=== PATIENT | male | born 1945 | race Caucasian/White ===

== ENCOUNTER 2023-06-11 08:58 | Inpatient (IN) ==
--- NOTE | 2023-05-23 14:14 | PAT Medication Instructions ---
Medication Instructions Date of Service May 23, 2023 Home Medications acetaminophen 650 mg tablet,extended release 650 mg PO Q12H PRN Pain aspirin 81 mg capsule 81 mg PO QAM carbidopa 25 mg-levodopa 100 mg tablet 1 tab PO BID cetirizine 10 mg tablet 10 mg PO QAM clobetasol 0.05 % topical cream 1 applic topical BID PRN Skin Irritation cyanocobalamin (vitamin B-12) 1,000 mcg tablet,extended release (Vitamin B-12 ER) 1,000 mcg PO QAM gabapentin 400 mg capsule 400 mg PO BID magnesium oxide 800 mg PO BID metformin 500 mg tablet 1,000 mg PO BID omeprazole 20 mg tablet,delayed release 20 mg PO BID rosuvastatin 5 mg tablet 5 mg PO Q2D semaglutide 1 mg/dose (2 mg/1.5 mL) subcutaneous pen injector (Ozempic) 1 mg subcut WK sotalol 80 mg tablet 80 mg PO BID tamsulosin 0.4 mg capsule 0.4 mg PO BID Continue as directed rosuvastatin 5 mg tablet 5 mg PO Q2D STOP taking 7 days before surgery semaglutide 1 mg/dose (2 mg/1.5 mL) subcutaneous pen injector (Ozempic) 1 mg subcut WK STOP taking 24 hours before surgery clobetasol 0.05 % topical cream 1 applic topical BID PRN Skin Irritation DO NOT take the morning of surgery cetirizine 10 mg tablet 10 mg PO QAM cyanocobalamin (vitamin B-12) 1,000 mcg tablet,extended release (Vitamin B-12 ER) 1,000 mcg PO QAM magnesium oxide 800 mg PO BID metformin 500 mg tablet 1,000 mg PO BID Take morning of surgery With a small sip of water, OTHERWISE NOTHING TO EAT OR DRINK AFTER MIDNIGHT: acetaminophen 650 mg tablet,extended release 650 mg PO Q12H PRN Pain (if needed) aspirin 81 mg capsule 81 mg PO QAM (unless surgeon directed otherwise) carbidopa 25 mg-levodopa 100 mg tablet 1 tab PO BID gabapentin 400 mg capsule 400 mg PO BID omeprazole 20 mg tablet,delayed release 20 mg PO BID sotalol 80 mg tablet 80 mg PO BID tamsulosin 0.4 mg capsule 0.4 mg PO BID Take evening before surgery acetaminophen 650 mg tablet,extended release 650 mg PO Q12H PRN Pain (if needed) carbidopa 25 mg-levodopa 100 mg tablet 1 tab PO BID gabapentin 400 mg capsule 400 mg PO BID magnesium oxide 800 mg PO BID metformin 500 mg tablet 1,000 mg PO BID omeprazole 20 mg tablet,delayed release 20 mg PO BID sotalol 80 mg tablet 80 mg PO BID tamsulosin 0.4 mg capsule 0.4 mg PO BID Other Notes If you have any questions please call us at [phone] or [phone] or [phone] or [phone]
--- NOTE | 2023-05-28 12:22 | Anesthesiology Consultation ---
Date of Service May 28, 2023 Assessment & Plan (1) Encounter for pre-operative examination: - check BSG am DOS. - severe PONV: to anesthesiologist and patient, discussion am DOS. - upcoming PCP pre-operative evaluation 06/06/23. - upcoming [facility] pre-operative evaluation 05/31/23. - Ozempic instructions: Patient takes on (Sunday). Patient and his were informed at PAT visit to stop 7 days prior to surgery- voiced understanding. Instructed last dose will be: (06/02/23). Patient advised to check with prescriber to see if alternative diabetic management changes recommended while holding Ozempic and instructions on resuming medication. They were advised if alternative medication is advised to contact [facility] to update chart and discuss if any further preop medication instructions needed. Chart Review Chart Review: Pending: Refer to Additional Notes / Consult section and Patient seen in Pre Admission Testing Teaching & Discussion Pre-Anesthesia Teaching/Discussion Notes: Instructed NPO after midnight before surgery, except medications with 15 cc of water. Medication instructions provided according to the PAT guidelines. History Surgery Operation Date: 06/11/23 07:45 Proposed Procedures p L4-L5 Decompression and Fusion, Spinal Cord Monitoring - [facility], Height/Weight Height: 5 ft 10 in Weight: 88.7 kg Allergies Allergy/AdvReac Type Severity Reaction Status Date / Time adhesive tape Allergy Severe skin Verified 05/18/23 14:59 irritation Iodinated Contrast Media Allergy Intermediate Hives Verified 05/18/23 14:59 meperidine [From Demerol] AdvReac Severe nervousness Verified 05/18/23 14:59 and tray oxycodone AdvReac Severe delirium Verified 05/18/23 14:59 phenylephrine AdvReac Severe bladder Verified 05/28/23 15:26 obstruction Sulfa (Sulfonamide AdvReac Severe urinary Verified 05/28/23 15:26 Antibiotics) retention trimethoprim AdvReac Severe urinary Verified 05/28/23 15:26 retention acetaminophen AdvReac Intermediate nausea, Verified 05/28/23 15:26 [From Panlor vomiting (hydrocodone-acetamin)] aspirin AdvReac Intermediate full dose Verified 05/18/23 14:59 aspirin -> GI upset fluvastatin AdvReac Intermediate myalgias Verified 05/28/23 15:26 hydrocodone AdvReac Intermediate nausea, Verified 05/28/23 15:26 [From Panlor vomiting (hydrocodone-acetamin)] pravastatin [From Pravachol] AdvReac Intermediate myalgias Verified 05/28/23 15:26 Medications Home Medications Medication Instructions Recorded Confirmed Last Taken acetaminophen 650 mg 650 mg PO Q12H PRN Pain 05/18/23 05/18/23 Unknown tablet,extended release aspirin 81 mg capsule 81 mg PO QAM 05/18/23 05/18/23 Unknown carbidopa 25 mg-levodopa 100 mg 1 tab PO BID 05/18/23 05/18/23 Unknown tablet cetirizine 10 mg tablet 10 mg PO QAM 05/18/23 05/18/23 Unknown clobetasol 0.05 % topical cream 1 applic topical BID PRN Skin 05/18/23 05/18/23 Unknown Irritation cyanocobalamin (vitamin B-12) 1,000 mcg PO QAM 05/18/23 05/18/23 Unknown 1,000 mcg tablet,extended release (Vitamin B-12 ER) gabapentin 400 mg capsule 400 mg PO BID 05/18/23 05/18/23 Unknown magnesium oxide 800 mg PO BID 05/18/23 05/18/23 Unknown metformin 500 mg tablet 1,000 mg PO BID 05/18/23 05/18/23 Unknown omeprazole 20 mg tablet,delayed 20 mg PO BID 05/18/23 05/18/23 Unknown release rosuvastatin 5 mg tablet 5 mg PO Q2D 05/18/23 05/18/23 Unknown semaglutide 1 mg/dose (2 mg/1.5 1 mg subcut WK 05/18/23 05/18/23 05/12/23 mL) subcutaneous pen injector (Ozempic) sotalol 80 mg tablet 80 mg PO BID 05/18/23 05/18/23 Unknown tamsulosin 0.4 mg capsule 0.4 mg PO BID 05/18/23 05/18/23 Unknown Past Medical History Medical History (Updated 05/28/23 @ 15:36 by Radha Lomas, HEMANT) Aortic stenosis Mild aortic valve stenosis (YADIRA I, D 1.2 cm2, V, D 1.1 cm2) mean peak gradient 8.5 mmHg, max peak gradient 16.3 mmHg. Asthma stable per pt and Chronic back pain Degenerative disc disease Diabetes mellitus, type 2 NIDDM GERD (gastroesophageal reflux disease) controlled, stable per pt History of skin cancer facial, s/p excision Hx of bronchitis Mid-April 2023. treated with OTC and doing well at this time. no s/s currently. Hx of colonic polyp Hyperlipidemia Nausea and vomiting after administration of anesthetic agent severe Parkinson disease follows with Dr Snow ([facility]/[place] [facility]) Pneumonia March 2023. treated with abx and [facility] for [facility]hab. doing well at this time. Sleep apnea hx -- not currently on treatment Tachycardia reason for sotalol Patient denies h/o stroke, seizures, heart attack, heart failure, HTN, PEs/DVTs or blood transfusions. Exercise / Class Metabolic Activity III < 4 Walking/Shop/Light housework (ambulates with cane, denies chest discomfort or shortness of breath with usual activities) Past Family History Family History (Updated 05/18/23 @ 15:39 by Alisa Chou RN) Other No family history of adverse response to anesthesia Past Surgical History Surgical History (Updated 05/18/23 @ 15:37 by Alisa Chou RN) H/O foot surgery left 2nd toe History of adenoidectomy History of appendectomy History of arthroplasty of right knee History of cardiac cath no stent (~) History of cataract surgery bilateral History of cholecystectomy History of colonoscopy History of esophagogastroduodenoscopy (EGD) History of open reduction and internal fixation (ORIF) procedure right leg hardware (right knee) s/p TKA History of open reduction and internal fixation (ORIF) procedure right thumb with hardware History of tonsillectomy Hx of local excision of skin lesion S/P cervical spinal fusion 1 level fusion. patient unsure which level. Full ROM Status post revision of total replacement of right knee Past Anesthesia History No Hx of Anesthesia Complications and No Family Hx of Anesthesia Complications History of PONV No Hx of Motion Sickness and History of PONV (severe, unknown if has had scop patch in past) Social History Smoking Status: Never smoker Do You Dip or Chew Tobacco: No Hx Alcohol Use: No Hx Substance Use: No Review of Systems Patient denies chest pain, shortness of breath, dyspnea on exertion, fever, chills, cough, wheezing, or palpitations. Physical Exam Vital Signs Vitals BP 115/77 P 70 TEMP 97.5 SP02 95% on RA RESP 17 Physical Patient resting comfortably in chair in no acute distress, alert and oriented, responding appropriately throughout visit Full cervical extension range of motion without pain TMD 3.5 finger breadths Mallampati Score 2 Dentition: several missing teeth, denies chipped or loose teeth, caps/crowns, implants or bridges Lungs: normal respiratory effort. Good air movement, clear throughout to auscultation, no adventitious breath sounds Cardiac: regular rate and rhythm, no murmurs noted Carotid arteries: negative bruit bilat Lab Results Anesthesia Preop Results Results Anesthesia Widget: WBC 9.40 K/ul (4.8-10.8) 05/28/23 Hgb 14.4 g/dl (14.0-18.0) 05/28/23 Hct 40.1 % (42.0-52.0) L 05/28/23 Plt 170 K/uL (130-400) 05/28/23 Na 139 mmol/L (136-145) 05/28/23 K 4.2 mmol/L (3.5-5.1) 05/28/23 Cl 102 mmol/L (98-107) 05/28/23 CO2 30 mmol/L (21-32) 05/28/23 BUN 23 mg/dl (6-23) 05/28/23 Creat 0.90 mg/dl (0.6-1.4) 05/28/23 Glucose Level 148 mg/dl (70-99(Fasting)) H 05/28/23 PT 11.8 Seconds (9.0-12.0) 05/28/23 PTT 27.2 Seconds (21.0-31.0) 05/28/23 INR 1.1 (0.9-1.1) 05/28/23 Urine Color Yellow 05/28/23 Urine Appearance Clear (Clear) 05/28/23 Urine pH 7.0 (4.5-7.5) 05/28/23 Urine Specific Holley 1.020 (1.000-1.030) 05/28/23 Urine Protein 1+ (Negative) H 05/28/23 Urine Glucose (UA) Negative (Negative) 05/28/23 Urine Ketones Negative (Negative) 05/28/23 Urine Blood Negative (Negative) 05/28/23 Urine Nitrite Negative (Negative) 05/28/23 Urine Bilirubin Negative (Negative) 05/28/23 Urine Urobilinogen Negative (Negative) 05/28/23 Urine Leukocyte Esterase Negative (Negative) 05/28/23 Urine WBC (Auto) 1-5 /hpf (0-5) 05/28/23 Urine RBC (Auto) 0-4 /hpf (0-4) 05/28/23 Urine Hyaline Casts (Auto) 0 /lpf (0-5) 05/28/23 Urine Epithelial Cells (Auto) 0-5 /lpf (0-5) 05/28/23 Urine Bacteria (Auto) Negative (Negative) 05/28/23 Blood Type A Positive 05/28/23 Antibody Screen NEGATIVE 05/28/23 Testing Electrocardiogram Date: 05/28/23 NSR, rate 65 bpm Right axis deviation Abnormal QRS T angle, consider primary T wave abnormality Chest X-Ray Date: 05/28/23 Interstitial thickening without evidence of acute abnormality. Cardiomegaly. Echocardiogram Date: 11/27/21 EF 60-64% Severe cLVH No LV segmental wall motion abnormalities Mild aortic valve stenosis (YADIRA I, D 1.2 cm2, V, D 1.1 cm2) mean peak gradient 8.5 mmHg, max peak gradient 16.3 mmHg. Mild mitral regurgitation Mildly enlarged proximal ascending thoracic aorta Cardiac Catheterization Date: 11/28/21 Left main: no evidence of disease LAD: moderately diseased, 40% lesion in proximal LAD, 60% lesion mid LAD, 60% lesion 1st diagonal Cx: mildly diseased RCA: moderately diseased, 60% lesion right PDA Hemodynamically insignificant coronary disease Medical management Cervical Spine Date: 07/03/22 CT 1. No significant interval changes. No evidence of traumatic injury or other acute abnormality in the head and cervical spine. 2. Stable chronic, age-related, and incidental findings as described above. Other Testing Chest CT 07/03/22 1. Nondisplaced possible fracture of the right anterior 6th rib. Correlate for focal tenderness. 2. Bilateral chronic rib deformities. 3. Slightly increased findings of fibrotic lung disease.
[~2023-06-11 08:58] MED LIST: CeleBREX 200 MG CAP PO SCH; DEXAMETHASONE SOD INJ 4 MG/ML VIAL ONE; GABAPENTIN 300 MG CAP PO SCH; LIDOCAINE 2% 2 ML VIAL/AMP(20MG/ML) INFIL ONE; LR 15ML/HR IV SCH; LR 60ML/HR IV SCH; MIDAZOLAM HCL 1 MG/ML 2ML VIAL ONE; ONDANSETRON INJ 2 MG/ML 2 ML VIAL ONE; PROPOFOL IV EMULSION 10 MG/ML 20 ML VIAL IV ONE; ROCURONIUM BROMIDE 10 MG/ML 5 ML VIAL IV ONE; SUGAMMADEX SODIUM 200 MG/2 ML VIAL IV ONE; ceFAZolin 2000MG 2,000 MG/15 ML SYR IV SCH; fentaNYL citrate PF 100 MCG/2 ML VIAL ONE
[2023-06-11] MEDS ORDERED: PROPOFOL IV EMULSION 10 MG/ML 20 ML VIAL IV ONE (10:36)
[2023-06-11] MEDS ORDERED: ePHEDrine sulfate 50 MG/ML AMP IV PRN (10:41)
[2023-06-11] MEDS ORDERED: ONDANSETRON INJ 2 MG/ML 2 ML VIAL IV PRN ×2 (10:41→15:30)
[2023-06-11] MEDS ORDERED: ATROPINE SULFATE 0.1 MG/ML 10ML SYR IV PRN (10:41)
--- NOTE | 2023-06-11 11:01 | History & Physical Bridge Note ---
Date of Service June 11, 2023 History & Physical Bridge Note I have examined the patient, reviewed the History & Physical and in the interval since the performance of the History & Physical I have noted the following changes of clinical significance: no changes noted
--- NOTE | 2023-06-11 11:02 | History & Physical Report ---
Date of Service June 11, 2023 Assessment & Plan (1) Neurogenic claudication due to lumbar spinal stenosis: Plan: L4-L5 decompression and fusion History of Present Illness Chief Complaint: Back and leg pain Primary Care Provider: MARCOS Meadows This is a 77-year-old male that presents with chronic persistent back and leg pain after failing course of nonoperative care is here for surgical intervention. Allergies Allergy/AdvReac Type Severity Reaction Status Date / Time adhesive tape Allergy Severe skin Verified 06/11/23 09:32 irritation Iodinated Contrast Media Allergy Intermediate Hives Verified 06/11/23 09:32 meperidine [From Demerol] AdvReac Severe nervousness Verified 06/11/23 09:32 and shakey oxycodone AdvReac Severe delirium Verified 06/11/23 09:32 phenylephrine AdvReac Severe bladder Verified 06/11/23 09:32 obstruction Sulfa (Sulfonamide AdvReac Severe urinary Verified 06/11/23 09:32 Antibiotics) retention trimethoprim AdvReac Severe urinary Verified 06/11/23 09:32 retention acetaminophen AdvReac Intermediate nausea, Verified 06/11/23 09:32 [From Panlor vomiting (hydrocodone-acetamin)] aspirin AdvReac Intermediate full dose Verified 06/11/23 09:32 aspirin -> GI upset fluvastatin AdvReac Intermediate myalgias Verified 06/11/23 09:32 hydrocodone AdvReac Intermediate nausea, Verified 06/11/23 09:32 [From Panlor vomiting (hydrocodone-acetamin)] pravastatin [From Pravachol] AdvReac Intermediate myalgias Verified 06/11/23 09:32 Home Medications Medication Instructions Recorded Confirmed Type acetaminophen 650 mg 650 mg PO Q12H PRN Pain 05/18/23 06/11/23 History tablet,extended release aspirin 81 mg capsule 81 mg PO QAM 05/18/23 06/11/23 History carbidopa 25 mg-levodopa 100 mg 1 tab PO BID 05/18/23 06/11/23 History tablet cetirizine 10 mg tablet 10 mg PO QAM 05/18/23 06/11/23 History clobetasol 0.05 % topical cream 1 applic topical BID PRN Skin 05/18/23 06/11/23 History Irritation cyanocobalamin (vitamin B-12) 1,000 mcg PO QAM 05/18/23 06/11/23 History 1,000 mcg tablet,extended release (Vitamin B-12 ER) gabapentin 400 mg capsule 400 mg PO BID 05/18/23 06/11/23 History magnesium oxide See Rx Instructions .Route .COMPLEX 05/18/23 06/11/23 History metformin 500 mg tablet 1,000 mg PO BID 05/18/23 06/11/23 History rosuvastatin 5 mg tablet 5 mg PO Q2D 05/18/23 06/11/23 History semaglutide 1 mg/dose (2 mg/1.5 1 mg subcut WK 05/18/23 06/11/23 History mL) subcutaneous pen injector (Ozempic) sotalol 80 mg tablet 80 mg PO BID 05/18/23 06/11/23 History tamsulosin 0.4 mg capsule 0.4 mg PO BID 05/18/23 06/11/23 History famotidine 20 mg tablet 20 mg PO QAM 06/06/23 06/11/23 History Past Med/Surg History Medical History (Updated 06/11/23 @ 11:02 by [facility] DO) Aortic stenosis Mild aortic valve stenosis (YADIRA I, D 1.2 cm2, V, D 1.1 cm2) mean peak gradient 8.5 mmHg, max peak gradient 16.3 mmHg. Asthma stable per pt and Chronic back pain Degenerative disc disease Diabetes mellitus, type 2 NIDDM GERD (gastroesophageal reflux disease) controlled, stable per pt History of skin cancer facial, s/p excision Hx of bronchitis Mid-April 2023. treated with OTC and doing well at this time. no s/s currently. Hx of colonic polyp Hyperlipidemia Nausea and vomiting after administration of anesthetic agent severe Parkinson disease follows with Dr Snow ([facility] [facility]) Pneumonia March 2023. treated with abx and sent [place] [facility] 1 [facility] for rehab. doing well at this time. Sleep apnea hx -- not currently on treatment Tachycardia reason for sotalol Surgical History H/O foot surgery left 2nd toe History of adenoidectomy History of appendectomy History of arthroplasty of right knee History of cardiac cath no stent (~) History of cataract surgery bilateral History of cholecystectomy History of colonoscopy History of esophagogastroduodenoscopy (EGD) History of open reduction and internal fixation (ORIF) procedure right leg hardware (right knee) s/p TKA History of open reduction and internal fixation (ORIF) procedure right thumb with hardware History of tonsillectomy Hx of local excision of skin lesion S/P cervical spinal fusion 1 level fusion. patient unsure which level. Full ROM Status post revision of total replacement of right knee Family History (Updated 05/18/23 @ 15:39 by Alisa Chou RN) Other No family history of adverse response to anesthesia Social History Smoking Status: Never smoker Second Hand Exposure: No; Do You Dip or Chew Tobacco: No; Tobacco Cessation Education Requested by Patient: No Hx Alcohol Use: No Hx Substance Use: No Preferred Language: Czech Communication Ability: Effective Community [employer] Officer Required: No Beliefs That Will Affect Care: None Current Living Situation: Spouse Other Information That Helps Us Care for You: No Feels Safe at Home: Yes Safety Concerns: Feels Safe At This Time Assistive Devices: Cane, Glasses, Hearing Aid - Bilateral and Walker Physical Exam Physical Exam: Patient is alert and oriented Heart regular rhythm Lungs clear Results & Data Results & Data Vital Signs (Past 12 Hours) Vital Signs Temp Pulse Resp BP Pulse Ox O2 Del Method 06/11/23 10:05 36.4 C L 68 20 117/75 97 Room Air
[2023-06-11] MEDS ORDERED: ceFAZolin 330 MG/ML 1 GM VIAL ONE (11:18)
[2023-06-11] MEDS ORDERED: BUPIVACAINE/EPINEPHRINE 0.25% 1:200,000 30 ML VIAL ONE (11:18)
[2023-06-11] MEDS ORDERED: ePHEDrine sulfate 50 MG/5 ML SYR ONE (11:45)
[2023-06-11] MEDS ORDERED: FLOSEAL HEMOSTATIC MATRIX 10ML TOP ONE (12:12)
--- NOTE | 2023-06-11 12:56 | Operative Report ---
Post Operative Report Pre & Post Diagnosis Operation Date: 06/11/23 10:55 Pre-Op Diagnosis: Neurogenic claudication due to lumbar spinal stenosis Post-Op Diagnosis: Neurogenic claudication due to lumbar spinal stenosis I identified the patient and participated in the time-out.: Yes Procedure Operation Date: 06/11/23 10:55 Actual Procedures #1 lumbar decompression bilateral medial facetectomies and foraminotomies L3-L4 L4-L5. #2 posterior spinal fusion L4-5. #3 placed posterior instrumentation L4-L5. #4 interbody fusion L4-5. #5 placement Spira 13 x 26 mm at L4-5. #6 placement locally harvested morselized autograft in the posterior gutters. #7 placement of I factor in the interbody space and infuse collagen sponge in the posterior gutters. Surgeon [facility], Auto Service Representative Alycia Kruse Estimated Blood Loss 50 Findings Consistent with Post-Op Diagnosis Specimens None Indications This is a 77-year-old male who presents above-mentioned diagnosis after failing course of nonoperative care is here for surgical invention. Description of Procedure Patient met with identified informed consent obtained. Patient was then taken to the operative suite underwent patient placed in a prone position on the Siloam table top Giuseppe frame. All bony promises well-padded eyes inspected to ensure no external pressure placed upon the. This point lumbar spine was prepped and draped in a sterile fashion. Sharp dissection with assistance of Bovie cautery from back to and exposing the lamina transverse processes of L4-L5 bilaterally. Separately retractors placed. Informed complete laminectomy L4 partial laminectomy of L3 including bilateral medial facetectomies and for aminotomies addressing severe spinal stenosis. Pedicle screws then placed in L4-L5 bilaterally with assistance of fluoroscopy and the proper sized holly placed. By way of a transfemoral approach and right a complete discectomy of L4-L5 was performed endplates curetted to subcortically and bone and a 13 x 26 mm Spira cage with I factor tapped position. The rods were then locked in final position bilaterally. The transverse processes of L4-L5 were then burred to subcortical bleeding bone. Infuse collagen sponge. Combined with bone graft was placed in the posterior gutters. 15 round WENDIE drain inserted. The incision was then closed with 1 Vicryl to fascia 2-0 Vicryl subcutaneously and 4 Monocryl for final skin closure. Steri-Strips sterile dressings placed. Patient waken taken to PACU in stable condition. Please note spinal cord body was utilized at the procedure no changes noted. Lastly Alycia Kruse was present at the entire surgery and while the patient positioning complex course of the surgery and final skin closure. I attest to the content of the Intraoperative Record and any orders documented therein. Any exceptions are noted below.
[2023-06-11] MEDS: fentaNYL citrate PF 100 MCG/2 ML VIAL IV PRN ×4 (13:27→14:22)
--- NOTE | 2023-06-11 14:36 | Anesthesiology Progress Note ---
Date of Service June 11, 2023 Anesthesia Post Procedure Vital Signs Vital Signs: Temp Pulse Pulse Resp BP Pulse Ox O2 Del Method 06/11/23 14:30 36.8 C 57 L 13 149/80 H 95 Nasal Cannula 06/11/23 14:15 36.8 C 56 L 10 L 141/81 H 94 Oxymask 06/11/23 14:05 36.8 C 55 L 10 L 142/85 H 96 Oxymask 06/11/23 14:25 36.8 C 56 L 10 L 141/81 H 94 Oxymask 06/11/23 13:55 53 L 10 L 146/79 H 96 Oxymask 06/11/23 13:45 54 L 12 149/79 H 97 Oxymask 06/11/23 13:35 53 L 11 L 138/79 97 Oxymask 06/11/23 13:29 36.4 C L 59 L 12 121/72 97 Oxymask 06/11/23 10:05 36.4 C L 68 20 117/75 97 Room Air O2 Flow Rate 06/11/23 14:30 2 06/11/23 14:15 2 06/11/23 14:05 2 06/11/23 14:25 2 06/11/23 13:55 2 06/11/23 13:45 3 06/11/23 13:35 3 06/11/23 13:29 5 06/11/23 10:05 Pain Intensity Back: Pain Intensity: 3 Transfer of Care Handoff Completed per policy Notes Mental Status: alert / awake / arousable and participated in evaluation Patient Amnestic to Procedure: Yes Nausea / Vomiting: adequately controlled Pain: adequately controlled Airway Patency, RR, SpO2: stable & adequate BP & HR: stable & adequate Hydration State: stable & adequate Anesthetic Complications: no major complications apparent and Pt Satisfied with anesthetic care
--- NOTE | 2023-06-11 14:38 | Fluoroscopy Report ---
INTRAOPERATIVE RADIOGRAPHS CLINICAL HISTORY: Lumbar spinal fusion surgery. Fluoro time: 16 seconds Ka,r: 8.54 mGy FINDINGS: 2 spot fluoroscopic views of the lumbar spine are presented. There has been discectomy at L 4-L5 with laminectomy and posterior fusion at this level. Interpedicular screws are in place. The ort hopedic hardware appears intact. IMPRESSION: Intraoperative images from lumbar spinal fusion surgery as above. Electronically signed by: Kentrell Wall M.D. 06/11/2023 2:37 PM
[2023-06-11] MEDS ORDERED: bisacodyL 10 MG SUPP PR PRN (15:30)
[2023-06-11] MEDS ORDERED: diphenhydrAMINE Capsule 25 MG CAP PO PRN (15:30)
[2023-06-11] MEDS ORDERED: hydrOXYzine HCl 25 MG TAB PO PRN (15:30)
[2023-06-11] MEDS ORDERED: ALUMINUM/MAGNESIUM SUSP 30 ML UDC PO PRN (15:30)
[2023-06-11] MEDS ORDERED: DO NOT ADMINISTER FLU VACCINE PRN (15:30)
[2023-06-11] MEDS ORDERED: METOCLOPRAMIDE HCL INJ 5 MG/ML 2 ML VIAL IV PRN (15:30)
[2023-06-11] MEDS ORDERED: NALOXONE HCL 0.4 MG/1 ML VIAL/CARP IV PRN (15:30)
[2023-06-11] MEDS ORDERED: LORazepam 0.5 MG TAB PO PRN (15:30)
[2023-06-11] MEDS ORDERED: traMADol HCL 50 MG TABLET PO PRN (15:30)
[2023-06-11] MEDS ORDERED: HYDROmorphone INJ 0.5 MG/0.5 ML SYR IV PRN (15:30)
[2023-06-11] MEDS ORDERED: MAGNESIUM HYDROXIDE SUSP 30 ML UDC PO PRN (15:30)
[2023-06-11] MEDS ORDERED: PROMETHAZINE HCL 12.5 MG in SODIUM CHLORIDE 0.9% 50 ML IV PRN (15:30)
[2023-06-11] MEDS ORDERED: FAMOTIDINE 20 MG TAB PO PRN (15:30)
[2023-06-11] MEDS ORDERED: CLOBETASOL PROPIONATE 0.05% CREAM 15 GM TUBE TOP PRN (15:30)
[2023-06-11] MEDS ORDERED: PHARMACY GLYCEMIC MGMT CONSULT PRN (15:30)
[2023-06-11] MEDS ORDERED: HYDROmorphone INJ 1 MG/ML SYRINGE IV PRN (15:30)
[2023-06-11] MEDS ORDERED: ACETAMINOPHEN 1,000 MG/100 ML VIAL IV PRN (15:30)
[2023-06-11] MEDS ORDERED: SOD PHOSPHATE/SOD BIPHOSPHATE ENEMA 132 ML BTL PR PRN (15:30)
[2023-06-11] MEDS ORDERED: DO NOT ADMINISTER PNEUMOCOCCAL VACCINE PRN (15:30)
[2023-06-11] MEDS ORDERED: ONDANSETRON 4 MG OD TAB PO PRN (15:30)
[2023-06-11] MEDS ORDERED: LORazepam 2 MG/1 ML VIAL IV PRN (15:30)
[2023-06-11] MEDS ORDERED: GLUCOSE 40% GEL 15 GM TUBE PO PRN (16:00)
[2023-06-11] MEDS ORDERED: CARBOHYDRATES FOR HYPOGLYCEMIA PO PRN (16:00)
[2023-06-11] MEDS ORDERED: GLUCOSE 10 TAB/TUBE PO PRN (16:00)
[2023-06-11] MEDS ORDERED: DEXTROSE 50% 50 ML SYRINGE IV PRN (16:00)
[2023-06-11] MEDS ORDERED: LANTUS PER UNIT CHARGE SC ONE (16:00)
[2023-06-11] MEDS ORDERED: GLUCAGON FOR INJ 1 MG VIAL IM PRN (16:00)
[2023-06-11] MEDS: SODIUM CHLORIDE 0.9% 1,000 ML IV SCH (16:08)
--- NOTE | 2023-06-11 16:42 | Hospitalist Consultation ---
Date of Consultation June 11, 2023 Assessment & Plan (1) Neurogenic claudication due to lumbar spinal stenosis: 77 y/o male with a DM2, HTN, hx vtach on Sotalol, HTN, Parkinson disease, GERD who underwent L4-L5 decompression fusion today by Dr. House. He is currently having significant post-operative nausea and vomiting, which he has had previously. He also has a history of hypomagnesemia, which they have been working to correct outpatient. His PPI was recently discontinued as they thought this may be contributing. No labs done yet today. POD #0 L4-L5 decompression/fusion - Pain control, activity, DVT prophylaxis per primary team - Check stat labs - CBC, BMP, Mg, Phos and replete if needed. Repeat labs in AM. - EKG now to evaluate QTc - Continue anti-emetics. Consider changing to liquid diet until N/V improved - Hold Lantus for tonight due to N/V. Re-evaluate tomorrow. Continue sliding scale coverage for now. - Encourage incentive spirometry (2) Post-operative nausea and vomiting: (3) Diabetes mellitus, type 2: (4) History of ventricular tachycardia: (5) Parkinson disease: (6) GERD (gastroesophageal reflux disease): Plan Continue other home medications as appropriate. updated at the bedside. Pt seen and reviewed with collaborating physician, Dr. Lindsey. Plan of care as outlined above. Thank you for this consultation. We will continue to follow the patient with you. A member of the [facility]ist team is available 05/03 via [employer]. Please don't hesitate to reach out with questions. Mark Flood PA-C Supervising Physician Co-Signing Physician Notes Patient seen and examined Reports nausea and vomiting. Seems he has post op N/V after anesthesia in the past Has hearing deficits and hearing aide not currently available Pain control Activity per Primary surgical team Check BMP, mag, phos, CBC Antiemetics Will hold off lantus for today due to persistent vomiting. Continue insulin sliding scale for now History of Present Illness Reason for Consultation: Post-operative medical management Requesting Physician: Dr. Remington House Attending Physician: Remington House, DO History of Present Illness This is a 77 y/o male with a history of DM2, prior VT (now on Sotalol), diabetic kidney disease, CAD, asthma, PTSD, HTN, BPH, dyslipidemia, and Parkinson disease who underwent L4-L5 decompression/fusion today by Dr. House and for whom we have been consulted to assist with post-operative medical management. Currently pt is feeling drowsy from the anesthesia and having significant nausea so his at the bedside assisted with the history. He has had three episodes of emesis already. Nausea is slightly better at present than when he was in PACU. Last dose of Zofran about two hours ago. Pt's reports that he has had similar symptoms in the past, which have been attributed to the pain medication. He has associated lightheadedness but denies chest pain, palpitations, shortne ss of breath, LARIOS. His outpatient cardiology notes were reviewed as well. Pt has a history of vtach for which he is on Sotalol. More recently, he has been having issues with hypomagnesemia, even with replacement. His PPI was stopped about a week ago and magnesium dosing was changed to lunch and evening, taking famotidine now in the AM. Labs have not been rechecked since this change. Pt is hard of hearing as well but left his hearing aids at home to make sure they didn't get lost. Allergies Allergy/AdvReac Type Severity Reaction Status Date / Time adhesive tape Allergy Severe skin Verified 06/11/23 09:32 irritation Iodinated Contrast Media Allergy Intermediate Hives Verified 06/11/23 09:32 meperidine [From Demerol] AdvReac Severe nervousness Verified 06/11/23 09:32 and shakey oxycodone AdvReac Severe delirium Verified 06/11/23 09:32 phenylephrine AdvReac Severe bladder Verified 06/11/23 09:32 obstruction Sulfa (Sulfonamide AdvReac Severe urinary Verified 06/11/23 09:32 Antibiotics) retention trimethoprim AdvReac Severe urinary Verified 06/11/23 09:32 retention acetaminophen AdvReac Intermediate nausea, Verified 06/11/23 09:32 [From Panlor vomiting (hydrocodone-acetamin)] aspirin AdvReac Intermediate full dose Verified 06/11/23 09:32 aspirin -> GI upset fluvastatin AdvReac Intermediate myalgias Verified 06/11/23 09:32 hydrocodone AdvReac Intermediate nausea, Verified 06/11/23 09:32 [From Panlor vomiting (hydrocodone-acetamin)] pravastatin [From Pravachol] AdvReac Intermediate myalgias Verified 06/11/23 09:32 Home Medications Medication Instructions Recorded Confirmed Type acetaminophen 650 mg 650 mg PO Q12H PRN Pain 05/18/23 06/11/23 History tablet,extended release aspirin 81 mg capsule 81 mg PO QAM 05/18/23 06/11/23 History carbidopa 25 mg-levodopa 100 mg 1 tab PO BID 05/18/23 06/11/23 History tablet cetirizine 10 mg tablet 10 mg PO QAM 05/18/23 06/11/23 History clobetasol 0.05 % topical cream 1 applic topical BID PRN Skin 05/18/23 06/11/23 History Irritation cyanocobalamin (vitamin B-12) 1,000 mcg PO QAM 05/18/23 06/11/23 History 1,000 mcg tablet,extended release (Vitamin B-12 ER) gabapentin 400 mg capsule 400 mg PO BID 05/18/23 06/11/23 History magnesium oxide See Rx Instructions .Route .COMPLEX 05/18/23 06/11/23 History metformin 500 mg tablet 1,000 mg PO BID 05/18/23 06/11/23 History rosuvastatin 5 mg tablet 5 mg PO Q2D 05/18/23 06/11/23 History semaglutide 1 mg/dose (2 mg/1.5 1 mg subcut WK 05/18/23 06/11/23 History mL) subcutaneous pen injector (Ozempic) sotalol 80 mg tablet 80 mg PO BID 05/18/23 06/11/23 History tamsulosin 0.4 mg capsule 0.4 mg PO BID 05/18/23 06/11/23 History famotidine 20 mg tablet 20 mg PO QAM 06/06/23 06/11/23 History Patient History Medical History (Updated 06/11/23 @ 17:33 by Adriana Flood PA-C) Aortic stenosis Mild aortic valve stenosis (YADIRA I, D 1.2 cm2, V, D 1.1 cm2) mean peak gradient 8.5 mmHg, max peak gradient 16.3 mmHg. Asthma stable per pt and Chronic back pain Degenerative disc disease Diabetes mellitus, type 2 NIDDM GERD (gastroesophageal reflux disease) controlled, stable per pt History of skin cancer facial, s/p excision History of ventricular tachycardia on sotalol Hx of bronchitis Mid-April 2023. treated with OTC and doing well at this time. no s/s currently. Hx of colonic polyp Hyperlipidemia Nausea and vomiting after administration of anesthetic agent severe Parkinson disease follows with Dr Snow ([facility], [place] [facility]) Pneumonia March 2023. treated with abx and sent to a detention for 1 week for rehab. doing well at this time. Sleep apnea hx -- not currently on treatment Surgical History H/O foot surgery left 2nd toe History of adenoidectomy History of appendectomy History of arthroplasty of right knee History of cardiac cath no stent (~) History of cataract surgery bilateral History of cholecystectomy History of colonoscopy History of esophagogastroduodenoscopy (EGD) History of open reduction and internal fixation (ORIF) procedure right leg hardware (right knee) s/p TKA History of open reduction and internal fixation (ORIF) procedure right thumb with hardware History of tonsillectomy Hx of local excision of skin lesion S/P cervical spinal fusion 1 level fusion. patient unsure which level. Full ROM Status post revision of total replacement of right knee Family History (Updated 05/18/23 @ 15:39 by Alisa Chou RN) Other No family history of adverse response to anesthesia Social History Smoking Status: Never smoker Second Hand Exposure: No; Do You Dip or Chew Tobacco: No; Tobacco Cessation Education Requested by Patient: No Hx Alcohol Use: No Hx Substance Use: No Preferred Language: Kittitian Communication Ability: Effective [place] [employer] Required: No Beliefs That Will Affect Care: None Current Living Situation: Spouse Other Information That Helps Us Care for You: No Feels Safe at Home: Yes Safety Concerns: Feels Safe At This Time Assistive Devices: Cane, Glasses, Hearing Aid - Bilateral and Walker Review of Systems Review of Systems: All systems reviewed & are unremarkable except as noted in HPI & below Limited due to pt condition (drowsy, significant nausea) Physical Exam Constitutional: drowsy but arousable, appears uncomfortable Neck: trachea midline Respiratory: no respiratory distress and no labored breathing Auscultation: + diminished lung sounds Cardiovascular: Rate/Rhythm: regular rate and regular rhythm Gastrointestinal (Abdomen): soft, hypoactive BS, non-tender, non-distended Musculoskeletal: Head/Neck/Chest: normocephalic, head atraumatic and neck supple Skin: Surgical drain in place with sanguinous drainage Neurologic: moving toes bilaterally, sensation intact bilateral feet Results & Data Results & Data Vital Signs (Past 12 Hours) Vital Signs Temp Pulse Pulse Resp BP Pulse Ox O2 Del Method 06/11/23 15:34 36.4 C L 56 L 16 179/91 H 97 Nasal Cannula 06/11/23 15:00 36.4 C L 54 L 12 167/91 H 97 Nasal Cannula 06/11/23 14:30 36.8 C 57 L 13 149/80 H 95 Nasal Cannula 06/11/23 14:15 36.8 C 56 L 10 L 141/81 H 94 Oxymask 06/11/23 14:05 36.8 C 55 L 10 L 142/85 H 96 Oxymask 06/11/23 14:25 36.8 C 56 L 10 L 141/81 H 94 Oxymask 06/11/23 13:55 53 L 10 L 146/79 H 96 Oxymask 06/11/23 13:45 54 L 12 149/79 H 97 Oxymask 06/11/23 13:35 53 L 11 L 138/79 97 Oxymask 06/11/23 13:29 36.4 C L 59 L 12 121/72 97 Oxymask 06/11/23 10:05 36.4 C L 68 20 117/75 97 Room Air O2 Flow Rate 06/11/23 15:34 2 06/11/23 15:00 3 06/11/23 14:30 2 06/11/23 14:15 2 06/11/23 14:05 2 06/11/23 14:25 2 06/11/23 13:55 2 06/11/23 13:45 3 06/11/23 13:35 3 06/11/23 13:29 5 06/11/23 10:05 Laboratory Results 06/11/23 06/11/23 09:34 15:05 POC Glucose 143 H 164 H Medications Administered Celecoxib (Celebrex 200 Mg Cap) 200 mg PO PREOP AB Stop: 06/11/23 18:00 Last Admin: 06/11/23 09:40 Dose: 200 mg Documented By: DSW Fentanyl Citrate (Fentanyl Citrate Pf 100 Mcg/2 Ml Vial) 50 mcg IV Q5M PRN PRN Reason: PACU Use Only-Pain Stop: 06/11/23 18:42 Last Admin: 06/11/23 14:22 Dose: 50 mcg Documented By: Admin: 06/11/23 14:07 Dose: 50 mcg Documented By: Admin: 06/11/23 13:46 Dose: 50 mcg Documented By: Admin: 06/11/23 13:27 Dose: 50 mcg Documented By: LML Gabapentin (Gabapentin 300 Mg Cap) 300 mg PO PREOP AB Stop: 06/11/23 18:00 Last Admin: 06/11/23 09:40 Dose: 300 mg Documented By: DSW Lactated Ringer's (Lr) 1,000 mls @ 60 mls/hr IV .[id number] [facility] Stop: 06/11/23 22:39 Last Admin: 06/11/23 09:40 Dose: Not Given Documented By: DSW Lactated Ringer's (Lr) 1,000 mls @ 15 mls/hr IV .Q24H [facility] Stop: 06/12/23 05:59 Last Infusion: 06/11/23 11:23 Dose: 0 mls/hr Documented By: Admin: 06/11/23 09:39 Dose: 15 mls/hr Documented By: DSW Sodium Chloride (Nss) 1,000 mls @ 150 mls/hr IV .Q6H40M [facility] Stop: 07/11/23 15:29 Last Admin: 06/11/23 16:08 Dose: 150 mls/hr Documented By: JD Ondansetron HCl (Ondansetron Inj 2 Mg/Ml 2 Ml Vial) 4 mg IV ONCE PRN PRN Reason: PACU Use Only-Nausea/Vomiting Stop: 06/11/23 18:42 Last Admin: 06/11/23 15:15 Dose: 4 mg Documented By: WT Discontinued Medications Bupivacaine HCl/Epinephrine Bitart (Bupivacaine/Epinephrine 0.25% 1:200,000 30 Ml Vial) Confirm Administered Dose 30 ml .ROUTE .STK-MED ONE Stop: 06/11/23 11:19 Last Admin: 06/11/23 11:47 Dose: 20 ml Documented By: GMB Cefazolin Sodium (Cefazolin 330 Mg/Ml 1 Gm Vial) Confirm Administered Dose 990 mg .ROUTE .STK-MED ONE Stop: 06/11/23 11:19 Last Admin: 06/11/23 12:48 Dose: 990 mg Documented By: ALLY Cefazolin Sodium (Ancef 2000mg) 2,000 mg in 15 mls @ 3.75 mls/min IV PREOP AB; Protocol Stop: 06/11/23 18:00 Last Admin: 06/11/23 11:23 Dose: 3.75 mls/min Documented By: [id number] Miscellaneous ( Floseal Hemostatic Matrix 10ml) 20 ml TOP ONCE ONE Stop: 06/11/23 12:13 Last Admin: 06/11/23 12:47 Dose: 10 ml Documented By: ALLY
[2023-06-11 17:36] LABS: Basophils # (auto) 0.03 K/uL (0.00-0.20); Basophils % (auto) 0.3 %; Eosinophils # (auto) 0.02 K/uL (0.00-0.50); Eosinophils % (auto) 0.2 %; Hematocrit (blood only) 41.9 % (42.0-52.0); Hemoglobin 14.7 g/dl (14.0-18.0); Immature Granulocytes # (auto) 0.12 K/uL (0.01-0.20); Immature Granulocytes % (auto) 1.4 %; Lymphocytes # (auto) 0.87 K/uL (1.20-3.40); Mean Corpuscular Hemoglobin 32.3 pg (25.0-34.0); Mean Corpuscular Hgb Conc 35.1 g/dL (32.0-36.0); Mean Corpuscular Volume 92.1 fL (80.0-100.0); Mean Platelet Volume 10.8 fL (9.4-12.4); Monocytes % (auto) 1.2 %; Neutrophils # (auto) 7.54 K/uL (1.40-6.50); Neutrophils % (auto) 86.9 %; Platelet Count 151 K/uL (130-400); RDW Coefficient of Variation 12.7 % (11.5-14.5); Red Blood Count 4.55 M/uL (4.70-6.10); White Blood Count 8.68 K/ul (4.8-10.8)
[2023-06-11 17:57] LABS: BUN Creatinine Ratio 26.9 (10-20); Calcium 8.9 mg/dl (8.6-10.3); Creatinine Clr Calc Pharmacy 74.6 ml/min; Est GFR (African American) 91.5 ml/min; Est GFR (Non-African American) 78.9 ml/min; Magnesium 1.2 mg/dl (1.7-2.4); Phosphorus 3.9 mg/dl (2.5-4.9); Potassium 4.2 mmol/L (3.5-5.1)
[2023-06-11] MEDS: INSULIN ASPART PER UNIT CHARGE SC SCH ×2 (18:09→21:06)
[2023-06-11] MEDS: ceFAZolin 2000MG 2,000 MG/15 ML SYR IV SCH (18:45)
[2023-06-11] MEDS: MAGNESIUM SULFATE / D5W 1 GM/100 ML BAG IV SCH ×2 (18:45→20:53)
[2023-06-11] MEDS: CARBIDOPA/LEVODOPA 25/100MG TAB PO SCH (20:57)
[2023-06-11] MEDS: DOCUSATE SODIUM/SENNA 50/8.6MG TAB PO SCH (20:57)
[2023-06-11] MEDS: GABAPENTIN 400 MG CAP PO SCH (20:58)
[2023-06-11] MEDS: TAMSULOSIN HCL 0.4 MG CAP PO SCH (20:59)
[2023-06-11] MEDS: SOTALOL HCL 80 MG TAB PO SCH (20:59)
[2023-06-12] MEDS: SODIUM CHLORIDE 0.9% 1,000 ML IV SCH ×3 (00:32→11:41)
[2023-06-12] MEDS: ceFAZolin 2000MG 2,000 MG/15 ML SYR IV SCH (03:58)
[2023-06-12] MEDS: POLYETHYLENE (MIRALAX) 17 GM PACK PO SCH ×2 (05:56→12:09)
[2023-06-12 07:04] LABS: Basophils # (auto) 0.01 K/uL (0.00-0.20); Basophils % (auto) 0.1 %; Hematocrit (blood only) 37.7 % (42.0-52.0); Hemoglobin 13.7 g/dl (14.0-18.0); Immature Granulocytes # (auto) 0.07 K/uL (0.01-0.20); Immature Granulocytes % (auto) 0.6 %; Lymphocytes % (auto) 12.3 %; Mean Corpuscular Hemoglobin 32.6 pg (25.0-34.0); Mean Corpuscular Hgb Conc 36.3 g/dL (32.0-36.0); Mean Corpuscular Volume 89.8 fL (80.0-100.0); Mean Platelet Volume 10.8 fL (9.4-12.4); Monocytes # (auto) 0.89 K/uL (0.11-0.59); Monocytes % (auto) 7.8 %; Neutrophils % (auto) 79.2 %; Platelet Count 197 K/uL (130-400); RDW Coefficient of Variation 12.4 % (11.5-14.5); RDW Standard Deviation 41.1 fL (36.4-46.3); White Blood Count 11.37 K/ul (4.8-10.8)
[2023-06-12 07:20] LABS: Estimated Average Glucose 151 mg/dl; Hemoglobin A1C 6.9 % (4.5-5.6)
[2023-06-12 07:33] LABS: BUN Creatinine Ratio 25.3 (10-20); Calcium 8.4 mg/dl (8.6-10.3); Creatinine Clr Calc Pharmacy 83.6 ml/min; Est GFR (African American) 98.4 ml/min; Est GFR (Non-African American) 84.9 ml/min
--- NOTE | 2023-06-12 07:58 | Electrocardiogram Report ---
Test Reason : Blood Pressure : / mmHG Vent. Rate : 055 BPM Atrial Rate : 055 BPM P-R Int : 188 ms QRS Dur : 082 ms QT Int : 486 ms P-R-T Axes : 001 -21 002 degrees QTc Int : 464 ms Sinus bradycardia Poor R wave progression, consider anterior AK vs. lead placement vs. LVH Abnormal ECG When compared with ECG of 28-MAY-2023 12:40, QRS axis Shifted left Minimal criteria for Anterior infarct are now Present Confirmed by Rosalio Tejada ([id number]) on 06/12/2023 7:58:30 AM Referred By: Remington House Confirmed By:Isai Tejada
[2023-06-12] MEDS: ASPIRIN 81 MG ECTAB PO SCH (08:28)
[2023-06-12] MEDS: dexAMETHasone 6 MG in SYRINGE 0 ML IV SCH (08:28)
[2023-06-12] MEDS: FAMOTIDINE 20 MG TAB PO SCH (08:28)
[2023-06-12] MEDS: CYANOCOBALAMIN (B-12) 500 MCG TABLET PO SCH (08:29)
[2023-06-12] MEDS: SOTALOL HCL 80 MG TAB PO SCH ×2 (08:29→21:31)
[2023-06-12] MEDS: CETIRIZINE HCL 10 MG TABLET PO SCH (08:29)
[2023-06-12] MEDS: GABAPENTIN 400 MG CAP PO SCH ×2 (08:29→21:30)
[2023-06-12] MEDS: CARBIDOPA/LEVODOPA 25/100MG TAB PO SCH ×2 (08:29→21:30)
[2023-06-12] MEDS: TAMSULOSIN HCL 0.4 MG CAP PO SCH ×2 (08:30→21:30)
[2023-06-12] MEDS: INSULIN ASPART PER UNIT CHARGE SC SCH ×4 (08:47→21:28)
[2023-06-12] MEDS ORDERED: ROSUVASTATIN CALCIUM 5 MG TAB PO SCH (09:00)
[2023-06-12] MEDS: LANTUS PER UNIT CHARGE SC SCH (12:15)
--- NOTE | 2023-06-12 13:15 | Orthopedic Progress Note ---
Date of Service June 12, 2023 Assessment & Plan (1) Neurogenic claudication due to lumbar spinal stenosis: Plan: At this time continue physical therapy monitor his WENDIE output anticipate discharge home in the next few days. Admission and Anticipated Discharge Date Admission Date: June 11, 2023 Subjective Back pain controlled leg pain markedly improved Physical Exam Physical Exam: Patient is in the chair at the bedside is constricted testing. Appears comfortable. Results & Data Vital Signs (Past 12 Hours) Vital Signs Temp Pulse Resp BP BP Pulse Ox O2 Del Method 06/12/23 11:52 36.7 C 72 18 102/68 95 Room Air 06/12/23 07:34 36.4 C L 65 18 126/75 98 Nasal Cannula 06/12/23 03:06 36.3 C L 63 16 117/70 95 Nasal Cannula O2 Flow Rate 06/12/23 11:52 06/12/23 07:34 2 06/12/23 03:06 2.0
--- NOTE | 2023-06-12 14:01 | Pharmacy Report ---
Pharmacy Glycemic Short Note 2 - Date of Service June 12, 2023 - Glycemic Short BSG Results (Last 24 hours): 06/11/23 06/11/23 06/11/23 15:05 16:54 17:21 Glucose 185 H POC Glucose 164 H 182 H 06/11/23 06/12/23 06/12/23 20:52 06:35 07:31 Glucose 146 H POC Glucose 156 H 151 H 06/12/23 11:32 Glucose POC Glucose 227 H OUTPATIENT ANTIDIABETIC REGIMEN: * Metformin 1000mg BID * Ozempic 1mg SQ Q7D * HbA1c 6.9% (06/12/23) ASSESSMENT: * Arnaldo is 77 YOM admitted status post spinal decompression/fusion with a history of T2DM. Pharmacy has been consulted for glycemic management while inpatient. He received 4 units of bolus insulin yesterday. * He received 12mg of IV dexamethasone preop and continues on dexamethasone 6mg IV daily x 3days. * Lantus 25 units (~0.3 units/kg) ordered yesterday to help cover preop steroids, held by hospitalist due to nausea, covered with Novolog at weight based stress of 3 * Fasting BSG slightly elevated this AM, Lantus held again this morning to ensure patient was able to tolerate breakfast, no issues noted per RN, Lantus at ~0.3 units/kg given with lunch. * BSGs trending upward, will add additional Lantus scale (0.1-0.2 units/kg ad ditional) based on BSGs. Will also tighten carbohydrate ratio slightly with dinner due to increase between breakfast and lunch. PLAN FOR INPATIENT GLYCEMIC CONTROL: * Hold outpatient oral diabetes medications * Basal insulin * Lantus 25 units SQ QAM with dexamethasone * Lantus 0-20 units SQ HS (see eMAR for additional details) * Bolus insulin * NovoLog per scale ACHS or Q6hrs while NPO * Goal Range: Low 110 mg/dL - High 140 mg/dL * Correction Factor: 20 mg/dL/unit * Nutritional / Prandial insulin per carb ratio of 1 unit per 5 grams CHO consumed
--- NOTE | 2023-06-12 15:15 | Hospitalist Progress Note ---
Date of Service June 12, 2023 Assessment & Plan (1) Neurogenic claudication due to lumbar spinal stenosis: Plan: 77 y/o male with a DM2, HTN, hx vtach on Sotalol, HTN, Parkinson disease, GERD who underwent L4-L5 decompression fusion today by Dr. House. He is currently having significant post-operative nausea and vomiting, which he has had previously. He also has a history of hypomagnesemia, which they have been working to correct outpatient. His PPI was recently discontinued as they thought this may be contributing. No labs done yet today. L4-L5 decompression/fusion on 06/11/2023 - Pain control, activity, DVT prophylaxis per primary team - Check stat labs - CBC, BMP, Mg, Phos and replete if needed. Repeat labs in AM. - EKG now to evaluate QTc - Continue anti-emetics. Consider changing to liquid diet until N/V improved - Hold Lantus for tonight due to N/V. Re-evaluate tomorrow. Continue sliding scale coverage for now. - Encourage incentive spirometry -Management as per Ortho -Minimal pain and we will get PT and OT evaluation -CBC and PRP remain unremarkable -Medically stable to be discharged -Likely discharge tomorrow (2) Post-operative nausea and vomiting: Plan: Resolved (3) Diabetes mellitus, type 2: Plan: We will continue with sliding scale insulin coverage (4) History of ventricular tachycardia: Plan: No cardiac symptoms at rate remains controlled (5) Parkinson disease: Plan: No parkinsonian symptoms (6) GERD (gastroesophageal reflux disease): Plan Continue other home medications as appropriate. updated at the bedside. Medically stable to be discharged Admission and Anticipated Discharge Date Admission Date: June 11, 2023 Subjective 06/12/2023 The patient was seen and examined in medical floor He is a status post L4-L5 decompression and fusion on 06/11/2023 He is sitting on a chair without any acute distress Minimal pain at the back without radiation and denies any other symptoms Review of Systems Review of Systems: All systems reviewed and are unremarkable except as noted below Physical Exam Physical Exam: Sitting on a chair without any acute distress Constitutional: well developed, well nourished and + obese; not ill appearing Eyes: PERRL, conjunctivae normal, anicteric sclerae ENMT: external ear and nose normal, oropharynx normal Neck: trachea midline, no thyromegaly Respiratory: no respiratory distress Auscultation: lungs clear to auscultation bilaterally Cardiovascular: Rate/Rhythm: regular rate and regular rhythm; not tachycardic Heart Sounds: normal S1 and normal S2; no murmur Extremities: no edema Gastrointestinal (Abdomen): Inspection/Auscultation: normal bowel sounds; abdomen not distended Percussion/Palpation: abdomen soft; abdomen nontender Musculoskeletal: Minimal back tenderness but no acute arthritis involving other joints Neurologic: normal touch/pain/proprioception and moves all extremities; no focal motor deficits Psychiatric: A+Ox3, euthymic affect Lymphatic: no cervical or axillary lymphadenopathy Results & Data Results & Data Vital Signs (Past 12 Hours) Vital Signs Temp Pulse Resp BP BP Pulse Ox O2 Del Method 06/12/23 11:52 36.7 C 72 18 102/68 95 Room Air 06/12/23 07:34 36.4 C L 65 18 126/75 98 Nasal Cannula O2 Flow Rate 06/12/23 11:52 06/12/23 07:34 2 Laboratory Results Short CBC 06/11/23 06/12/23 Range/Units 17:21 06:35 WBC 8.68 11.37 H (4.8-10.8) K/ul Hgb 14.7 13.7 L (14.0-18.0) g/dl Hct 41.9 L 37.7 L (42.0-52.0) % Plt Count 151 197 (130-400) K/uL BMP 06/11/23 06/12/23 17:21 06:35 Sodium 135 L 136 Potassium 4.2 4.0 Chloride 100 99 Carbon Dioxide 28 29 BUN 25 H 21 Creatinine 0.93 0.83 Glucose 185 H 146 H Calcium 8.9 8.4 L Medications Administered Current Inpatient Medications Acetaminophen (Acetaminophen 500 Mg Tab) 1,000 mg PO Q8H PRN PRN Reason: MILD Pain Scale 1,2,3 & Pre PT Stop: 07/11/23 15:29 Al Hydrox/Mg Hydrox/Simethicone (Aluminum/Magnesium Susp 30 Ml Udc) 30 ml PO Q6H PRN PRN Reason: Dyspepsia Stop: 07/11/23 15:29 Aspirin (Aspirin 81 Mg Ectab) 81 mg PO QAM [facility] Stop: 07/12/23 08:59 Last Admin: 06/12/23 08:28 Dose: 81 mg Bisacodyl (Bisacodyl 10 Mg Supp) 10 mg DC DAILY PRN PRN Reason: Constipation Stop: 07/11/23 15:29 Carbidopa/Levodopa (Carbidopa/Levodopa 25/100mg Tab) 1 tab PO BID AB Stop: 07/11/23 20:59 Last Admin: 06/12/23 08:29 Dose: 1 tab Cetirizine HCl (Cetirizine Hcl 10 Mg Tablet) 10 mg PO QAM AB Stop: 07/12/23 08:59 Last Admin: 06/12/23 08:29 Dose: 10 mg Clobetasol Propionate (Clobetasol Propionate 0.05% Cream 15 Gm Tube) 1 appln TOP BID PRN PRN Reason: Skin Irritation Stop: 07/11/23 15:29 Cyanocobalamin (Cyanocobalamin (B-12) 500 Mcg Tablet) 1,000 mcg PO QAM AB Stop: 07/12/23 08:59 Last Admin: 06/12/23 08:29 Dose: 1,000 mcg Dextrose (Dextrose 50% 50 Ml Syringe) 25 - 50 ml IV UD PRN; Protocol PRN Reason: Hypoglycemia Protocol Stop: 07/11/23 15:59 Diphenhydramine HCl (Diphenhydramine Capsule 25 Mg Cap) 25 mg PO Q6H PRN PRN Reason: Allergic Rhinitis/Insomnia Stop: 07/11/23 15:29 Famotidine (Famotidine 20 Mg Tab) 20 mg PO QAM AB Stop: 07/12/23 08:59 Last Admin: 06/12/23 08:28 Dose: 20 mg Famotidine (Famotidine 20 Mg Tab) 20 mg PO Q12H PRN PRN Reason: Dyspepsia Stop: 07/11/23 15:29 Gabapentin (Gabapentin 400 Mg Cap) 400 mg PO BID AB Stop: 07/11/23 20:59 Last Admin: 06/12/23 08:29 Dose: 400 mg Glucagon (Glucagon For Inj 1 Mg Vial) 1 mg IM UD PRN; Protocol PRN Reason: Hypoglycemia Protocol Stop: 07/11/23 15:59 Glucose (Glucose 40% Gel 15 Gm Tube) 15 - 30 gm PO UD PRN; Protocol PRN Reason: Hypoglycemia Protocol Stop: 07/11/23 15:59 Glucose (Glucose 10 Tab/Tube) 4 - 8 tab PO UD PRN; Protocol PRN Reason: Hypoglycemia Protocol Stop: 07/11/23 15:59 Hydromorphone HCl (Hydromorphone Inj 0.5 Mg/0.5 Ml Syr) 0.5 mg IV Q3H PRN PRN Reason: MODERATE Pain (Scale 4,5,6) & Pre PT Stop: 06/25/23 15:29 Hydromorphone HCl (Hydromorphone Inj 1 Mg/Ml Syringe) 1 mg IV Q3H PRN PRN Reason: SEVERE Pain (Scale 7,8,9,10) Stop: 06/25/23 15:29 Last Admin: 06/11/23 20:56 Dose: 1 mg Hydroxyzine HCl (Hydroxyzine Hcl 25 Mg Tab) 25 mg PO Q8H PRN PRN Reason: Anxiety Stop: 07/11/23 15:29 Promethazine HCl 12.5 mg/ (Sodium Chloride) 50.5 mls @ 202 mls/hr IV Q6H PRN PRN Reason: Nausea &/or Vomiting Stop: 07/11/23 15:29 Acetaminophen (Ofirmev) 1,000 mg in 100 mls @ 400 mls/hr IV Q8H PRN PRN Reason: Pain Rating 1-3 & Pre PT Stop: 06/12/23 15:31 Last Infusion: 06/12/23 07:50 Dose: Infused Dexamethasone 6 mg/ Syringe 1.5 mls @ 1 mls/min IV DAILY [facility] Stop: 06/14/23 09:02 Last Admin: 06/12/23 08:28 Dose: 1 mls/min Influenza Virus Vaccine Quadrival (Do Not Administer Flu Vaccine) 1 each N/A PRN PRN PRN Reason: Notification Stop: 07/11/23 15:29 Insulin Aspart (Insulin Aspart Per Unit Charge) 0 units SC ACHS [facility] Stop: 07/11/23 16:29 Last Admin: 06/12/23 12:15 Dose: 10 units Insulin Glargine (Lantus Per Unit Charge) 25 units SC QAM [facility] Stop: 06/14/23 09:01 Last Admin: 06/12/23 12:15 Dose: 25 units Insulin Glargine (Lantus Per Unit Charge) 0 units SC HS [facility]; Protocol Stop: 07/12/23 20:59 Lorazepam (Lorazepam 0.5 Mg Tab) 0.5 mg PO Q8H PRN PRN Reason: Sedation/Anxiety Stop: 07/11/23 15:29 Lorazepam (Lorazepam 2 Mg/1 Ml Vial) 0.5 mg IV Q8H PRN PRN Reason: Sedation/Anxiety Stop: 07/11/23 15:29 Magnesium Hydroxide (Magnesium Hydroxide Susp 30 Ml Udc) 30 ml PO Q24H PRN PRN Reason: Constipation Stop: 07/11/23 15:29 Metoclopramide HCl (Metoclopramide Hcl Inj 5 Mg/Ml 2 Ml Vial) 10 mg IV Q6H PRN PRN Reason: Nausea &/or Vomiting Stop: 07/11/23 15:29 Miscellaneous (Carbohydrates For Hypoglycemia ) 15 - 30 gm PO UD PRN PRN Reason: Hypoglycemia Treatment Stop: 07/11/23 15:59 Miscellaneous Information (Pharmacy Glycemic Mgmt Consult) 1 each N/A UD PRN PRN Reason: Consult Stop: 07/11/23 15:29 Naloxone HCl (Naloxone Hcl 0.4 Mg/1 Ml Vial/Carp) 0.1 mg IV Q5M PRN PRN Reason: Oversedation/Resp depression Stop: 07/11/23 15:29 Ondansetron HCl (Ondansetron Inj 2 Mg/Ml 2 Ml Vial) 4 mg IV Q6H PRN PRN Reason: Nausea &/or Vomiting Stop: 07/11/23 15:29 Last Admin: 06/11/23 21:07 Dose: 4 mg Ondansetron HCl (Ondansetron 4 Mg Od Tab) 4 mg PO Q6H PRN PRN Reason: Nausea Stop: 07/11/23 15:29 Pneumococcal Polyvalent Vaccine (Do Not Administer Pneumococcal Vaccine) 1 each N/A PRN PRN PRN Reason: Notification Stop: 07/11/23 15:29 Rosuvastatin Calcium (Rosuvastatin Calcium 5 Mg Tab) 5 mg PO Q2D AB Stop: 07/12/23 08:59 Last Admin: 06/12/23 08:30 Dose: 5 mg Senna/Docusate Sodium (Docusate Sodium/Senna 50/8.6mg Tab) 2 tab PO HS AB Stop: 07/11/23 20:59 Last Admin: 06/11/23 20:57 Dose: 2 tab Sodium Biphosphate/Sodium Phosphate (Sod Phosphate/Sod Biphosphate Enema 132 Ml Btl) 132 ml DC ONE PRN PRN Reason: Constipation Stop: 07/11/23 15:29 Sotalol HCl (Sotalol Hcl 80 Mg Tab) 80 mg PO BID AB Stop: 07/11/23 20:59 Last Admin: 06/12/23 08:29 Dose: 80 mg Tamsulosin HCl (Tamsulosin Hcl 0.4 Mg Cap) 0.4 mg PO BID AB Stop: 07/11/23 20:59 Last Admin: 06/12/23 08:30 Dose: 0.4 mg Tramadol HCl (Tramadol Hcl 50 Mg Tablet) 50 - 100 mg PO Q4H PRN PRN Reason: Moderate-Severe pain & Pre PT Stop: 07/11/23 15:29
[2023-06-12] MEDS: ACETAMINOPHEN 500 MG TAB PO PRN (16:16)
[2023-06-12] MEDS ORDERED: LANTUS PER UNIT CHARGE SC SCH (21:00)
[2023-06-12] MEDS: DOCUSATE SODIUM/SENNA 50/8.6MG TAB PO SCH (21:29)
[2023-06-13 07:12] LABS: Basophils # (auto) 0.01 K/uL (0.00-0.20); Basophils % (auto) 0.1 %; Eosinophils # (auto) 0.03 K/uL (0.00-0.50); Eosinophils % (auto) 0.3 %; Hematocrit (blood only) 36.2 % (42.0-52.0); Hemoglobin 13.1 g/dl (14.0-18.0); Immature Granulocytes # (auto) 0.03 K/uL (0.01-0.20); Immature Granulocytes % (auto) 0.3 %; Lymphocytes % (auto) 21.2 %; Mean Corpuscular Hemoglobin 32.3 pg (25.0-34.0); Mean Corpuscular Hgb Conc 36.2 g/dL (32.0-36.0); Mean Corpuscular Volume 89.2 fL (80.0-100.0); Mean Platelet Volume 10.8 fL (9.4-12.4); Monocytes # (auto) 1.46 K/uL (0.11-0.59); Monocytes % (auto) 12.4 %; Neutrophils # (auto) 7.75 K/uL (1.40-6.50); Neutrophils % (auto) 65.7 %; Platelet Count 164 K/uL (130-400); RDW Coefficient of Variation 12.9 % (11.5-14.5); Red Blood Count 4.06 M/uL (4.70-6.10); White Blood Count 11.78 K/ul (4.8-10.8)
[2023-06-13 07:44] LABS: Anion Gap 5 (3-11); BUN Creatinine Ratio 18.8 (10-20); Blood Urea Nitrogen 18 mg/dl (6-23); Calcium 8.9 mg/dl (8.6-10.3); Carbon Dioxide 32 mmol/L (21-32); Chloride 102 mmol/L (98-107); Creatinine Clr Calc Pharmacy 72.3 ml/min; Est GFR (Non-African American) 75.9 ml/min; Glucose 116 mg/dl (70-99(Fasting)); Sodium 139 mmol/L (136-145)
[2023-06-13] MEDS: ACETAMINOPHEN 500 MG TAB PO PRN (07:52)
[2023-06-13] MEDS: LANTUS PER UNIT CHARGE SC SCH (08:19)
[2023-06-13] MEDS: INSULIN ASPART PER UNIT CHARGE SC SCH ×2 (08:20→12:37)
[2023-06-13] MEDS: dexAMETHasone 6 MG in SYRINGE 0 ML IV SCH (08:25)
[2023-06-13] MEDS: ASPIRIN 81 MG ECTAB PO SCH (08:28)
[2023-06-13] MEDS: CETIRIZINE HCL 10 MG TABLET PO SCH (08:28)
[2023-06-13] MEDS: CARBIDOPA/LEVODOPA 25/100MG TAB PO SCH (08:28)
[2023-06-13] MEDS: SOTALOL HCL 80 MG TAB PO SCH (08:29)
[2023-06-13] MEDS: GABAPENTIN 400 MG CAP PO SCH (08:29)
[2023-06-13] MEDS: CYANOCOBALAMIN (B-12) 500 MCG TABLET PO SCH (08:29)
[2023-06-13] MEDS: FAMOTIDINE 20 MG TAB PO SCH (08:29)
[2023-06-13] MEDS: TAMSULOSIN HCL 0.4 MG CAP PO SCH (08:29)
[2023-06-13] MEDS ORDERED: LANTUS PER UNIT CHARGE SC SCH (09:00)
--- NOTE | 2023-06-13 10:01 | Discharge Summary ---
Date of Service June 13, 2023 Admission HPI Per Admitting Provider This is a 77-year-old male that presents with chronic persistent back and leg pain after failing course of nonoperative care is here for surgical intervention. Principal Diagnosis Lumbar spinal stenosis with neurogenic claudication Discharge Data Allergies Allergy/AdvReac Type Severity Reaction Status Date / Time adhesive tape Allergy Severe skin Verified 06/11/23 09:32 irritation Iodinated Contrast Media Allergy Intermediate Hives Verified 06/11/23 09:32 meperidine [From Demerol] AdvReac Severe nervousness Verified 06/11/23 09:32 and shakey oxycodone AdvReac Severe delirium Verified 06/11/23 09:32 phenylephrine AdvReac Severe bladder Verified 06/11/23 09:32 obstruction Sulfa (Sulfonamide AdvReac Severe urinary Verified 06/11/23 09:32 Antibiotics) retention trimethoprim AdvReac Severe urinary Verified 06/11/23 09:32 retention acetaminophen AdvReac Intermediate nausea, Verified 06/11/23 09:32 [From Panlor vomiting (hydrocodone-acetamin)] aspirin AdvReac Intermediate full dose Verified 06/11/23 09:32 aspirin -> GI upset fluvastatin AdvReac Intermediate myalgias Verified 06/11/23 09:32 hydrocodone AdvReac Intermediate nausea, Verified 06/11/23 09:32 [From Panlor vomiting (hydrocodone-acetamin)] pravastatin [From Pravachol] AdvReac Intermediate myalgias Verified 06/11/23 09:32 Consultations 06/11/23 15:30 Consult Hospitalist Routine Procedures Performed Operation Date: 06/11/23 10:55 Actual Procedures p L4-L5 Decompression and Fusion, Spinal Cord Monitoring(Not Applicable) - Remington House DO Ordered Studies 06/11/23 10:55 [place] lumbar spine 2-3V Routine Hospital Course (1) Neurogenic claudication due to lumbar spinal stenosis: Patient went lumbar decompression fusion trial as well as negative orthopedic for postoperative. Postop he progressed appropriately. WENDIE drain decreasing well. Excellent strength testing. Pain well controlled. Simply discharged home. Discharge orders instructions found in chart for further review. Total Time Total Time Spent Total Time Spent (In Minutes): 20 minutes Discharge Plan Discharge Items Patient Disposition: Home - Self-Care Reason For Visit: POSTOP Discharge Diagnosis: Lumbar spinal stenosis with neurogenic claudication Activity: As commented below Non-emergency contact: Primary Care Provider Call non-emergency contact if: you have any medication questions Follow-up/Referrals: Valeria Garcia CRNP [Primary Care Provider] - Diet: Regular Addtl Attending Provider Instructions: ACTIVITY RECOMMENDATIONS: SELF CARE INSTRUCTIONS AFTER THORACIC/LUMBAR FUSIONS 1. You may walk to your tolerance. It is good exercise for your legs and back. Expect some back and intermittent leg aches and pains. 2. You may perform "counter-top" level activities (make a sandwich, edenilson with a project, etc.). 3. No bending or lifting of more than 10 pounds or back twisting of any nature (roll like a log when turning in bed). 4. You may ride in a car for 20-30 minutes at a time. No driving until after your first visit with your doctor. 5. Frequent changes of position and restricting sitting to 30 minutes at a time will help limit the amount of back spasms and stiffness you may experience. 6. You may discontinue the use of ambulatory aids (cane, crutches, etc.) once your strength and confidence allow. 7. You may tufting machine operator the shower and let water strike your incision when you arrive home at least once daily. Do not take a tub bath, sit in a hot tub or go into a swimming pool until after your first recheck in the office. SPECIAL CARE INSTRUCTIONS: VERY IMPORTANT TO READ AND REVIEW A. Your surgical incision has been closed with a cosmetic suture under the skin that will dissolve in about 6 weeks. In 14 days, you can use a pair of clean scissors and cut the suture that is left outside of the skin at the ends of your incision. 1. The small skin tapes can be removed 7 days after surgery if they have not fallen off by that point. 2. You may keep the wound open to air as much as possible to promote healing after post-op day number 5 unless told otherwise by your doctor. 3. If you think the wound looks like it is becoming infected (redness or worsening drainage) and/or you are experiencing fever, chill or worsening back pain and muscle spasms, contact the office so that we may evaluate you as soon as possible. B. Complications are uncommon, but please contact us if you have any signs or symptoms of: 1. wound infection (fever higher than 102.5 degrees F, redness, separation of wound, drainage, or increasing pain from the incision) 2. blood clots in legs (pain, swelling, redness and warmth in legs) 3. urinary tract infection (fever higher than 102.5 degrees F, burning upon urination or increased frequency of urination) 4. nerve problems (inability to walk on your toes or heels, numbness, loss of bowel or bladder control) 5. any other symptoms that concern you C. Please call the office at if you have any concerns or questions about your operation or recovery. D. No smoking! Smoking drastically decreases the chance of a solid fusion. E. Do not take any anti-inflammatory medications (Indocin, Advil, Motrin, Aspirin, Naprosyn, etc.) as these may inhibit the chance of a solid fusion. Tylenol is okay to take for pain. MANAGING PAIN AFTER SPINAL SURGERY 1. Narcotic medication is intended for short-term use and will be provided for surgical pain. Surgical pain usually lasts for a period of 4-6 weeks. Narcotic medication includes Percocet, Vicodin, Darvocet, Tylenol #3 or Lortab. 2. Longer-term pain is more appropriately treated with non-narcotic medication such as Tylenol ES. 3. Muscle spasm is not appropriately treated with narcotics. Muscle relaxers such as Soma, Flexeril or Skelaxin can be used along with Tylenol ES. 4. Remember that we all live with some "aches and pains". This is not unusual or uncommon after an injury or as we get older. a. Back pain is expected and may include muscle spasms for 4 to 6 weeks after surgery. The pain should gradually improve. If the pain worsens for no apparent reason, please contact the office. b. Intermittent leg pain may also be experienced and should not be concerned about unless it worsens for no apparent reason. If so, please contact the office. 5. We will provide appropriate medication within the normal guidelines of their prescribed use. We will also be very cautious and aware of potential abuse and extended duration of patients' medication needs. a. Pain medications are for your comfort and to assist with sleep and rest so that the tissue can heal. They are not provided in order to return to normal activity and should not be used through the day. To do so or worsening pain at night can result from ongoing tissue damage and development of tolerance to the prescribed medicine. 6. Please allow 2-3 days to process refills. Prescriptions will not be mailed but must be picked up at the office. FOLLOW UP VISIT: Keep your scheduled follow-up appointment. Any questions, please call the office at . Pending Studies at Discharge: No Stand-Alone Forms: My [facility] InHomeVest, Smoking Cessation Medications and DC Order Prescriptions: New tramadol 50 mg tablet 50 mg PO Q6H PRN (Reason: pain, moderate) Qty: 30 0RF Continued cyanocobalamin (vitamin B-12) [Vitamin B-12] 1,000 mcg Tablet Extended Release 1,000 mcg PO QAM cetirizine 10 mg Tablet 10 mg PO QAM sotalol 80 mg Tablet 80 mg PO BID gabapentin 400 mg Capsule 400 mg PO BID carbidopa-levodopa 25-100 mg Tablet 1 tab PO BID rosuvastatin 5 mg Tablet 5 mg PO Q2D Ozempic 1 mg/dose (2 mg/1.5 mL) Pen Injector 1 mg SUBCUT WK magnesium oxide 400 mg magnesium Tablet See Rx Instructions .ROUTE .COMPLEX Rx Instructions: 400 mg- 1 tablet at noon, 1 tablet evening clobetasol 0.05 % Cream 1 applic TOPICAL BID PRN (Reason: Skin Irritation) tamsulosin 0.4 mg Capsule 0.4 mg PO BID metformin 500 mg Tablet 1,000 mg PO BID acetaminophen 650 mg Tablet Extended Release 650 mg PO Q12H PRN (Reason: Pain) aspirin 81 mg Capsule 81 mg PO QAM famotidine 20 mg Tablet 20 mg PO QAM Discharge Orders: Discharge Order (Routine); Ordered 06/13/23 Ordered By: Remington Patrick/Other Patient Handouts: Managing Type 2 Diabetes Admission Data Admit Date/Time: 06/11/23 13:02 Attending Provider: Remington House Admit Provider: Remington House Primary Care Provider: Valeria Garcia Other Providers: [facility] ; Grace Vazquez ; Manjit Thomas
--- NOTE | 2023-06-13 13:25 | Hospitalist Progress Note ---
Date of Service June 13, 2023 Assessment & Plan (1) Neurogenic claudication due to lumbar spinal stenosis: Plan: per Dr. Lion's notes with addendum: 77 y/o male with a DM2, HTN, hx vtach on Sotalol, HTN, Parkinson disease, GERD who underwent L4-L5 decompression fusion today by Dr. House. He is currently having significant post-operative nausea and vomiting, which he has had previously. He also has a history of hypomagnesemia, which they have been worki ng to correct outpatient. His PPI was recently discontinued as they thought this may be contributing. No labs done yet today. L4-L5 decompression/fusion on 06/11/2023 - Pain control, activity, DVT prophylaxis per primary team - Check stat labs - CBC, BMP, Mg, Phos and replete if needed. Repeat labs in AM. - EKG now to evaluate QTc - Continue anti-emetics. Consider changing to liquid diet until N/V improved - Hold Lantus for tonight due to N/V. Re-evaluate tomorrow. Continue sliding scale coverage for now. - Encourage incentive spirometry -Management as per Ortho -Minimal pain and we will get PT and OT evaluation -CBC and PRP remain unremarkable -Medically stable to be discharged -Likely discharge tomorrow 06/13 stable overall no medical contraindication for discharge today if stable from Ortho standpoint (2) Post-operative nausea and vomiting: Plan: Resolved (3) Diabetes mellitus, type 2: Plan: resume usual regimen (4) History of ventricular tachycardia: Plan: No cardiac symptoms at rate remains controlled (5) Parkinson disease: Plan: No parkinsonian symptoms (6) GERD (gastroesophageal reflux disease): Plan Continue other home medications as appropriate. Medically stable to be discharged Admission and Anticipated Discharge Date Admission Date: June 11, 2023 Subjective ff up for s/p back surgery, etc seen resting in chair, comfortable states he has some surgical site back pain, but otherwise feels ok no nausea ambulated in the hallways today with no problems no chest pain, dyspnea, palpitations, dizziness patient states he'd like to go home today no other issues Review of Systems Review of Systems: all noted and negative except for above Physical Exam Physical Exam: General- oriented x 3, not in distress, speaks in sentences with no effort or accessory muscle use Eyes- anicteric Neck- no JVD Lungs- clear breath sounds bilaterally, no rales/wheezes Heart- normal rate, regular rhythm; no murmurs Abdomen- normal bowel sounds, nondistended, soft, nontender Back- surgical site: dressing in place, WENDIE drain in place with serosanguinous output Extremities- no pretibial edema, no calf tenderness Neuro- alert, oriented x 3; no gross focal neurologic deficits Skin- warm & dry Results & Data Results & Data Vital Signs (Past 12 Hours) Vital Signs Temp Pulse Resp BP Pulse Ox O2 Del Method 06/13/23 07:35 36.7 C 63 18 120/76 93 Room Air all noted and reviewed including below
== END 2023-06-13 13:48 | disposition home or self-care (01) | DRG 454 ==
LOC: ASU 08:58 → 3E 13:02